=== PATIENT | male | born 1985 | race Caucasian/White ===

== ENCOUNTER 2018-04-30 14:22 | Emergency (ER) | payer OTHER ==
[~2018-04-30] VITALS: Ht 162.6 cm; Wt 72.6 kg
[2018-04-30] MEDS ORDERED: IBUPROFEN100 MG (15:15)
== END 2018-04-30 19:07 | disposition home or self-care (01) ==
LOC: ER 14:22
DX: S80.12XA Contusion of left lower leg, initial encounter (principal); S90.32XA Contusion of left foot, initial encounter; S50.12XA Contusion of left forearm, initial encounter; W18.39XA Other fall on same level, initial encounter; Y93.66 Activity, soccer; Y92.89 Other specified places as the place of occurrence of the external cause; Y99.8 Other external cause status

== ENCOUNTER 2020-06-21 12:28 | Outpatient (CLI) | payer OTHER ==
[~2020-06-21 12:28] MED LIST: IBUPROFEN100 MG
== END 2020-06-21 18:34 | disposition home or self-care (01) ==
LOC: OFIC 805 12:28
PROVIDERS: ATTEND Otolaryngology
DX: J35.1 Hypertrophy of tonsils (principal)

== ENCOUNTER 2020-10-25 11:46 | Outpatient (CLI) | payer OTHER | END 2020-10-25 13:00 | disposition home or self-care (01) | LOC: OFIC 805 11:46 | PROVIDERS: ATTEND Otolaryngology | DX: J35.1 Hypertrophy of tonsils (principal) ==

== ENCOUNTER → 2020-10-25 13:07 | Outpatient (CLI) | payer OTHER | END | disposition home or self-care (01) | LOC: LAB 13:07 | PROVIDERS: ATTEND Otolaryngology | DX: R07.0 Pain in throat (principal); J03.81 Acute recurrent tonsillitis due to other specified organisms ==

== ENCOUNTER → 2020-11-13 | Outpatient (CLI) | payer OTHER | END | disposition home or self-care (01) | LOC: OFIC 805 11:00 | PROVIDERS: ATTEND Otolaryngology | DX: J03.81 Acute recurrent tonsillitis due to other specified organisms (principal) ==